=== PATIENT | female | born 1980 | race Caucasian/White ===

== ENCOUNTER 2016-12-29 11:57 | Inpatient (IN) ==
[2016-12-29] MEDS ORDERED: Ringers Solution, Lactated 1,000 ML IVC SCH (12:00)
[2016-12-29] MEDS ORDERED: Ondansetron 4 MG/2 ML VIAL IVP PRN (12:00)
[2016-12-29] MEDS ORDERED: Naloxone 0.4 MG/ML INJ IVP PRN (12:00)
[2016-12-29] MEDS ORDERED: Famotidine 20 MG/2 ML VIAL IVP PRN (12:00)
--- NOTE | 2016-12-29 12:12 | OB/GYN History & Physical ---
Date of Encounter: 12/29/16 Time of Encounter: 12:08 Assessment and Plan (1) 38 weeks gestation of Current visit: Yes Status: Acute admitted for delivery (2) AMA (advanced maternal age) multigravida 35+ Current visit: No Status: Chronic admitted for delivery Qualifiers: Trimester: unspecified trimester Qualified Code(s): O09.529 - Supervision of elderly multigravida, unspecified trimester History of Present Illness Chief complaint: Advanced dilation HPI: Ms. Vera is a 36 year old female @ 38w1d presents to labor and delivery from OB office. Patient was seen by Dr. Ng today and was dilated . Dr. Ng discussed patient with Dr. Argueta and both agreed patient should be sent over for delivery. Patient denies contractions, LOF or VB. Patient reports +FM. Blood type: A+, Rubella: Immune, Hep B: Nonreactive, GBS: Negative. Past Med Surg Social Fam HX - Past Medical History Source: patient Medical history: non-contributory Psychiatric history: no psych history - Past Surgical History Surgical History: no surgical history - Social History Smoking Status: Never smoker Smokeless Tobacco Status: No Alcohol use: none Drug use: none Occupational status: employed Current living situation: Home - Independent Activity Level: Independent ambulation Recent Out of Country Travel Within the Last 8 Weeks: No Exposure or Possible Exposure to Illness During Travel: No - Family History Father Living Status: Hx Family Respiratory Disorders: Yes (LUNG CANCER) Hx Family Cancer: Yes (small cell lung cancer) Obstetrical History - Pregnancies : 2 Para: 1 Term: 0 : 1 Ab's: 0 Livin - History/Complications History/Complications: Vaginal breech delivery Medications and Allergies No Known Home Drugs 12/29/16 [History] Allergies No Known Allergies Allergy (Verified 05/21/15 22:21) Review of System OB - Constitutional Constitutional ROS IM: no fatigue, no fever(s), no headache(s) - Cardiovascular Cardiovascular: no chest pain, no edema, no lightheadedness, no palpitations, no pedal edema, no syncope - Respiratory Respiratory: no cough, no dyspnea - Gastrointestinal Gastrointestinal: no abdominal pain, no cramping, no diarrhea, no heartburn, no nausea, no vomiting - Genitourinary Genitourinary: no abnormal vaginal bleeding, no dysuria, no flank pain, no urinary frequency, no urinary hesitancy, no vaginal discharge, no vaginal odor, no vaginal pruritis Exam - Constitutional Constitutional: well developed, well nourished, no acute distress, average body habitus - HEENT HEENT: Normocephaly, Mucus Membranes Moist - Neck Neck exam: full ROM, supple - Lungs Respiratory exam: CTAB - Cardiovascular Cardiovascular exam: RRR, +S1, +S2 - Abdomen Abdomen: Present: bowel sounds normal, gravid, non tender - Extremities Extremities exam: full ROM, normal capillary refill, normal inspection Deep Tendon Reflex Grade: 2+ Normal - Cervix Dilation: 7 (Per Dr. Ng) Effacement: 90 Station: -1 - Uterus Uterus exam: Present: normal size, normal contour - Comments Comments: FHR 135 bpm moderate variability +15x15 accels no decels noted. CAt. 1 tracing. Contractions irregular. Results All other labs normal. - VTE Reasons for not Prescribing Prophylaxis: Treatment not Indicated - Low risk for VTE
[2016-12-29] MEDS ORDERED: miSOPROStol 100 MCG TABLET PO STA (12:19)
[2016-12-29 12:44] LABS: Basophils % 0.2 %; Eosinophils # 0.1 K/mcL (0.0-0.6); Eosinophils % 1.1 %; Hematocrit 36.5 % (35.3-44.9); Hemoglobin 12.2 g/dL (11.5-15.4); Immature Granulocytes % 0.9 % (0-4); Lymphocytes # 1.4 K/mcL (0.6-4.6); Lymphocytes % 13.8 %; Mean Corpuscular HGB Conc 33.4 g/dL (31.6-35.5); Mean Corpuscular Hemoglobin 30.9 pg (28.0-33.3); Mean Corpuscular Volume 92.4 fL (83.0-100.0); Monocytes # 0.6 K/mcL (0.0-1.3); Monocytes % 5.8 %; Neutrophils # 8.2 K/mcL (1.6-8.9); Platelet Count 129 K/mcL (140-400); Red Blood Count 3.95 M/mcL (3.82-4.97); Segmented Neutrophils % 78.2 %
[2016-12-29] MEDS ORDERED: Bupivacaine-MPF 0.25% 10 ML VIAL EP ONE (14:41)
[2016-12-29] MEDS ORDERED: *HR* FentaNYL (PF) 100 MCG/2 ML VIAL EP ONE (14:41)
--- NOTE | 2016-12-29 14:44 | Anesthesia Evaluation PreOp ---
Date of Encounter: 12/29/16 Time of Encounter: 14:33 - Past History Planned Operation: labor epidural Cardiac History: Denies any Significant Hx Pulmonary History: Denies Any Significant HX [facility] History: Denies Any Significant HX Other Medical History: Denies Any Significant HX Anesthesia History: No Prior Anesthetic Complications (never had general anesthesia. No family history of anesthetic problems. no problems with previous epidural.) : Yes Alcohol Use: none Drug use: none Medications and Allergies No Known Home Drugs 12/29/16 [History] Allergies No Known Allergies Allergy (Verified 05/21/15 22:21) - Meds/Allergy Pre-op Review Medications Reviewed: Yes Allergies Reviewed: Yes Beta Blockers on Current Med List: No Anesthesia Results - Labs 12/29/16 12:33 Anesthesia Exam vss Height: 5'5" Weight: 69 kg NPO (# of Hours): 1.5 Pain Scale: 0 Pain Scale Used: Numeric (1 - 10) - HEENT Pupil (Motor): Pupils equal, EOMI Mallampati: II Teeth: Normal Oral Opening: Greater than 3 - [facility] LOC: Oriented [facility] Motor: Normal RUE, Normal LUE, Normal RLE, Normal LLE, Normal Face [facility] Sensory: Normal: RUE, LUE, RLE, LLE, Face - Cardiac Rhythm: Regular - Pulmonary Breath Sounds: bilateral Clear Respiratory Effort: Symmetrical Anesthesia Assess/Plan ASA Score: 2 Modified Beul[place] Scale for Level of Consciousness: Cooperative, oriented, and tranquil Anesthetic Plan: Regional Monitoring Plan: Standard Monitors
[2016-12-29] MEDS ORDERED: Epidural Premix (fent/bupiv) 110 ML EP SCH (14:45)
[2016-12-29] MEDS ORDERED: Bupivacaine-MPF 0.25% 10 ML VIAL ONE (14:57)
[2016-12-29] MEDS ORDERED: *HR* FentaNYL (PF) 100 MCG/2 ML VIAL ONE (14:57)
[2016-12-29] MEDS ORDERED: Epidural Premix (fent/bupiv) 110 ML EP ONE (14:58)
--- NOTE | 2016-12-29 16:08 | Anesthesia Procedures ---
Date of Encounter: 12/29/16 Time of Encounter: 15:01 Procedures: Anesthesia - Epidural/Spinal Patient ID/Chart reviewed: Yes Patient examined: Yes OB Eval: Gestational age: 38 OB Eval: : 2 OB Eval: Hx Para: 1 OB Eval: Dilated at (cm): 7 OB Eval: Contractions: Non-stressed pattern Consent Obtained: Yes Supplemental Oxygen: None/Room Air Site Prep: Aseptic Technique, Sterile prep and drape, Povidone-Iodine 1% Patient position: upright Local Anesthetic: Lidocaine 1% Amount of Local Anesthetic used: 5 Touhy Needle Gauge: 18 Touhy Needle Depth (cm): 5 Catheter Depth at Skin (cm): 15 Test Dose (1.5% Lido + Epi): Volume given (mls): 6 (2 doses of 3ml each at dufferent interspaces. see note.) Test Dose Result: Positive (once catheter placed at L2-3, blood noted upon aspiration. Appeared to clear with pulling back on catheter and flushing with NS. However, upon admininstration of test dose, heart rate went feom 70s to 90s. catheter d/c'd and epidural placed at L3-4.) Loading Dose: 0.25% Marcaine (mls): 8 Loading Dose: Fentanyl (mcg): 100 Loading Dose Administered: Thru Catheter Infusion Med: 0.125% Bupivacaine w/ 2 mcg/ml Fentanyl Infusion Rate (mls/hr): [address]: Tegaderm, Tape Interspace Used: L3-L4 Loss of Resistance (LUBA): Yes Blood: No CSF: No Paresthesia: No Procedure: L2-3 interspace chosen, catheter easily placed. Blood noted upon aspiration. Pulled back on depth of catheter and flushed with NS with no further blood in catheter. However, upon administration of test dose, Heart rate increased from mid 70s to mid to upper 90s. Catheter d/c'd. Same procedure followed at L3-4, again with easy placement of catheter and no blood present and negative result with test dose. Patient tolerated the procedure well with return of heart rate to mid 70s. Vitals + FHT's: 3 Vital Signs Time 1501 1515 1520 1525 1530 1535 1540 BP 117/64 109/60 109/60 120/65 110/63 109/65 112/61 Pulse 83 77 70 84 72 75 76 FHTs 140 140 150 140 140 140 150
--- NOTE | 2016-12-29 16:51 | OB Labor Progress Note ---
Date of Encounter: 12/29/16 Time of Encounter: 16:49 Labor Progress Note - Subjective Subjective: Patient resting comfortably with epidural in place. Patient denies any pain. Discussed POC with patient. Patient denies any questions or concerns. - Cervix Cervix: 7.5/100/-1 - Heart Tones Heart Tones: 135 bpm moderate variable +15x15 accels no decels noted. Cat. 1 tracing - Lawrence Lawrence: 3-4 min apart - Interventions Interventions: SVE, AROM small amount of clear fluid. - Plan Plan: Continue labor management.
[2016-12-29] MEDS ORDERED: Oxytocin 20 units/ LR 1000 mL 20 UNIT/1,000 ML BAG IVC ONE (17:47)
[2016-12-29] MEDS ORDERED: Measles/Mumps/Rubella Vacc 0.5 ML VIAL SQ PRN ×2 (18:10→19:40)
[2016-12-29] MEDS ORDERED: Ibuprofen 600 MG TABLET PO PRN ×2 (18:10→19:40)
[2016-12-29] MEDS ORDERED: Acetaminophen 325 MG TABLET PO PRN ×2 (18:10→19:40)
[2016-12-29] MEDS ORDERED: Lanolin 7 G OINT...G. TP PRN ×2 (18:12→19:40)
[2016-12-29] MEDS ORDERED: Oxytocin 20 units/ LR 1000 mL 20 UNIT/1,000 ML BAG IVC SCH ×2 (18:15→19:40)
--- NOTE | 2016-12-29 18:20 | OB/GYN Procedure Note ---
Delivery - Delivery Date: 12/29/16 Provider: Gretta Schmitt Intrapartum events: none Delivery induction: none Delivery augmentation: rupture of membranes (50mcg cytotec PO) Delivery monitor: external FHT, external uterine Anesthesia: epidural Estimated Blood Loss: 100 - Infant (s) A Infant Delivery Date: 12/29/16 Delivery Time: 17:51 Presentation: vertex Position: ALBERTA Route of delivery: Gender: Male Viability: Viable Pounds: 6 Ounces: 11 Weight Gram: 3025 kg at 1 minute: 8 at 5 mins: 9 Shoulder Dystocia: not encountered Placenta: spontaneous Cord: nuchal cord (x1 loose), 3 umbilical vessels, nuchal reduced - Repair Episiotomy: none Laceration Description: None - Complications Delivery complications: none - Disposition Mom disposition: stable in LDR disposition: stable in LDR - Comments Comments: Called to LDR. Patient is complete and feeling pressure. Patient placed in stirrups and prepped for vaginal delivery. Under maternal effort patient spontaneously delivered male infant over intact perineum. Nuchal cord x1 and reduced. No shoulder dystocia or meconium was noted. was placed on maternal abdomen. Cord was clamped and cut after pulsations ceased. Placenta was delivered spontaneously and visually intact. Pericare provided. Both mother and are stable in LDR for 2 hour recovery. Patient desires permanent sterilization, tubal ligation consent was signed in office. Bed management notified of add on surgery in morning.
[2016-12-30] MEDS ORDERED: ceFAZolin 2,000 MG in D5% in Water (Mini-Bag+) 100 ML IVPB ONE (07:41)
--- NOTE | 2016-12-30 07:44 | OB/GYN Progress Note ---
Date of Encounter: 12/30/16 Time of Encounter: 07:45 - Assessment and Plan (1) Status post vaginal delivery Current Visit: Yes Status: Acute (2) Family planning Current Visit: No Status: Acute will prepare The patient for a bilateral partial salpingectomy Subjective - Subjective Interval history: Patient without complaints at this time patient still wanted proceed on with tubal ligation. The risks and benefits of the tubal were explained to patient with failure rate of 5-8 per thousand with increased risk of ectopic if was to occur. Patient is having minimal bleeding minimal pain Patient reports: appetite normal, voiding normally, pain well controlled, ambulating normally : doing well Objective - Latest Vital Signs Latest vital signs: Vital Signs Temp Pulse Resp BP Pulse Ox 12/30/16 07:39 98.2 F 89 16 110/68 12/30/16 04:02 98.3 F 75 16 109/72 98 12/29/16 22:15 98.2 F 84 20 115/75 97 12/29/16 21:15 98.2 F 89 16 121/67 97 12/29/16 20:15 98.3 F 79 16 114/59 95 Intake and Output 12/29/16 12/29/16 12/30/16 15:59 23:59 07:59 Intake Total 950 / 950 400 / 400 Output Total 600 / 600 900 / 900 Balance 950 / 950 -200 / -200 -900 / -900 Intake: IV Fluids 950 / 950 Lactated Ringers 1,000 ML 950 / 950 @ 125 mls/hr IVC .Q8H [facility] Rx#:[id number] Other 400 / 400 Output: Urine 600 / 600 900 / 900 Other: Stool Characteristics Normal for Patient Weight 69.3 kg 66.5 kg Patient Weight 12/30/16 23:59 Weight 66.5 kg - Exam Lungs: bilateral: normal Chest: Normal S1, Normal S2 Extremities: Present: normal Abdomen: Present: normal appearance, soft Uterus: Present: firm Uterus Position: At Umbilicus - Labs Labs: Laboratory Results - last 24 hr 12/29/16 12:33 WBC 10.4 RBC 3.95 Hgb 12.2 Hct 36.5 MCV 92.4 MCH 30.9 MCHC 33.4 RDW 13.0 Plt Count 129 L MPV 11.0 Immature Gran % 0.9 Seg Neutrophils % 78.2 Lymphocytes % 13.8 Monocytes % 5.8 Eosinophils % 1.1 Basophils % 0.2 Neutrophils # 8.2 Lymphocytes # 1.4 Monocytes # 0.6 Eosinophils # 0.1 Basophils # 0.0
[2016-12-30] MEDS ORDERED: Lidocaine -MPF 2% 2 ML VIAL ONE (08:12)
[2016-12-30] MEDS ORDERED: *HR* Succinylcholine 200 MG/10 ML VIAL IVP ONE (08:12)
[2016-12-30] MEDS ORDERED: *HR* Propofol 200 MG/20 ML VIAL IVP ONE (08:12)
[2016-12-30] MEDS ORDERED: *HR* Rocuronium Bromide 50 MG/5 ML VIAL ONE (08:12)
[2016-12-30] MEDS ORDERED: *HR* FentaNYL (PF) 100 MCG/2 ML VIAL ONE (08:12)
[2016-12-30] MEDS ORDERED: Bupivacaine/EPI 1:200k 0.25%PF 10 ML VIAL INFILT ONE (08:12)
[2016-12-30] MEDS ORDERED: Ringers Solution, Lactated 1,000 ML IVC SCH (08:15)
[2016-12-30] MEDS ORDERED: Ondansetron 4 MG/2 ML VIAL IVP ONE (08:23)
--- NOTE | 2016-12-30 08:23 | Anesthesia Evaluation PreOp ---
Date of Encounter: 12/30/16 Time of Encounter: 08:21 - Past History Planned Operation: BPS Cardiac History: Denies any Significant Hx Pulmonary History: Denies Any Significant HX Other Medical History: Denies Any Significant HX Anesthesia History: Past Anesthesia (no prior surgery) Alcohol Use: none Drug use: none Medications and Allergies No Known Home Drugs 12/29/16 [History] Allergies No Known Allergies Allergy (Verified 05/21/15 22:21) - Meds/Allergy Pre-op Review Medications Reviewed: Yes Allergies Reviewed: Yes Beta Blockers on Current Med List: No Anesthesia Results - Labs 12/29/16 12:33 Anesthesia Exam Vital Signs/O2 Sat, Most Current Temp Pulse Resp BP Pulse Ox 98.2 F 89 16 110/68 98 12/30/16 07:39 12/30/16 07:39 12/30/16 07:39 12/30/16 07:39 12/30/16 04:02 Height: 5'5''/1.65m Weight: 146 lbs/66.5 kg NPO (# of Hours): 8 Pain Scale: 0 Pain Scale Used: Numeric (1 - 10) - HEENT Pupil (Motor): EOMI Mallampati: II Teeth: Normal Oral Opening: Greater than 3 - [facility] LOC: Oriented [facility] Motor: Normal RUE, Normal LUE, Normal RLE, Normal LLE, Normal Face [facility] Sensory: Normal: RUE, LUE, RLE, LLE, Face - Cardiac Rhythm: Regular Murmur: None - Pulmonary Breath Sounds: bilateral Clear Respiratory Effort: Symmetrical Anesthesia Assess/Plan ASA Score: 2 Modified Beul[place] Scale for Level of Consciousness: Cooperative, oriented, and tranquil Anesthetic Plan: General Monitoring Plan: Standard Monitors Recovery Plan: PACU
[2016-12-30] MEDS ORDERED: *HR* Midazolam HCl 2 MG/2 ML VIAL ONE (08:26)
[2016-12-30] MEDS ORDERED: Dexamethasone 4 MG/ML VIAL ONE (08:54)
[2016-12-30] MEDS ORDERED: Ondansetron 4 MG/2 ML VIAL ONE (08:54)
[2016-12-30] MEDS ORDERED: Prenatal Vit/FA 1 EACH TABLET PO SCH ×2 (09:00)
[2016-12-30] MEDS: *HR* Morphine 2 MG/ML SYRINGE IVP PRN ×4 (09:30→09:49)
[2016-12-30] MEDS ORDERED: Ketorolac 30 MG/ML VIAL IVP ONE (09:37)
--- NOTE | 2016-12-30 09:38 | Operative Note ---
Date of procedure: 12/30/16 Pre-op diagnosis: Status post vaginal delivery, desires sterilization Post-op diagnosis: same Procedure: Bilateral partial salpingectomy Complications: None Anesthesia: GETA Surgeon: Harsh Rodrigez Estimated blood loss (cc): 20 Specimen: Portions of the right and left fallopian tube Condition: stable Disposition: PACU Procedure in Detail: Patient is a 36-year-old female status post vaginal delivery who desired tubal sterilization. Patient states does not want anymore children and wants to proceed with a tubal ligation. The risks and benefits of a tubal ligation were explained to the patient with a failure rate of 5-02/1000 with increased risk of ectopic if was to occur. Procedure: Patient was taken to the operating room where general anesthesia was found be adequate. She was placed in the dorsal supine position prepped and draped in usual fashion. Timeout was then obtained. A small infraumbilical incision was made with a scalpel and carried down to the underlying tissue to fascia was identified. The fascia was grasped tented up and nicked in midline and extended laterally with Novoa scissors. The parietal peritoneum was identified tented up and entered sharply. [address] [employer] retractors were placed to the incision the right fallopian tube was then identified grasped tented up through the incision followed out to the fimbriated end. At the ampullar region a 2 cm portion of the tube was then suture ligated with O plain 2 for the knuckle was excised. Good hemostasis was noted and the tube was returned to the abdomen. In a similar fashion on the left side the tube was identified grasped and brought out through the incision and followed out to the fimbriated end. A 2 cm portion of this tube was then suture ligated with oh plain 2 and a knuckle was excised. Good hemostasis was noted tube was returned to the abdomen. Specimen was sent to pathology. Good hemostasis was noted the fascia was closed using an 0 Vicryl in a running stitch and the skin was closed using a 4-0 Vicryl in subcuticular manner. All needles AND sponge counts were correct 3 and she did receive preoperative antibiotics. She was taken recovery room in stable condition.
--- NOTE | 2016-12-30 10:06 | Anesthesia Evaluation Post Op ---
Date of Encounter: 12/30/16 Time of Encounter: 10:05 - Vital Signs Vital Signs: Vital Signs/O2 Sat, Most Current Temp Pulse Resp BP Pulse Ox 98.0 F 66 16 117/77 97 12/30/16 09:55 12/30/16 09:55 12/30/16 09:55 12/30/16 09:55 12/30/16 09:55 - Lungs Lungs: Clear Ascult./Percussion - Airway Airway: Non-obstructed - Cardiovascular Regular Rate - Mental Status Mental Status: Asleep with brisk response to light stimulation - Pain Pain Scale: 3 Pain Scale used: Numeric (1 - 10) - Nausea Vomiting Nausea Vomiting: Not Present - Hydration Hydration: NPO, Has not voided - Discharge PostOp Status: Transfer Patient to floor
[2016-12-30] MEDS ORDERED: Ibuprofen 600 MG TABLET PO PRN (10:13)
[2016-12-30] MEDS ORDERED: *HR* HYDROcodone/Acet 5/325 mg TABLET PO PRN (10:13)
[2016-12-30] MEDS ORDERED: Acetaminophen 325 MG TABLET PO PRN (10:13)
--- NOTE | 2016-12-30 13:58 | Discharge Summary ---
Date of Encounter: 12/30/16 Time of Encounter: 14:00 - Discharge Diagnosis (1) Status post vaginal delivery Priority: Primary Status: Acute (2) Family planning Priority: Secondary Status: Acute (3) Status post tubal ligation at time of delivery, current hosp Priority: Secondary Status: Acute - Discharge Medications Prescriptions: HYDROcodone/Acet 5/325 mg [[place] 5-325 mg] 1 tab PO Q6HR PRN #30 tablet PRN Reason: Moderate Pain (4-6) Ibuprofen [Motrin] 600 mg PO Q6HR PRN #30 tablet PRN Reason: Cramping Home Medications: HYDROcodone/Acet 5/325 mg [[place] 5-325 mg] 1 tab PO Q6HR PRN #30 tablet [Rx] Ibuprofen [Motrin] 600 mg PO Q6HR PRN #30 tablet 12/30/16 [Rx] Allergies/Adverse Reactions: Allergies No Known Allergies Allergy (Verified 05/21/15 22:21) Data Procedures and tests throughout hospitalization: Laboratory Tests 12/29/16 12:33 WBC 10.4 RBC 3.95 Hgb 12.2 Hct 36.5 MCV 92.4 MCH 30.9 MCHC 33.4 RDW 13.0 Plt Count 129 L MPV 11.0 Immature Gran % 0.9 Seg Neutrophils % 78.2 Lymphocytes % 13.8 Monocytes % 5.8 Eosinophils % 1.1 Basophils % 0.2 Neutrophils # 8.2 Lymphocytes # 1.4 Monocytes # 0.6 Eosinophils # 0.1 Basophils # 0.0 Date of admission: 12/29/16 11:57 Primary care physician: rahul Discharging clinician: Harsh Rodrigez Anticipated date of discharge: 12/30/16 - Patient Status Disposition: Home, Self-Care Condition: Good Functional capacity at discharge: independent ambulation Overall status at discharge: patient is progressing back to baseline - Discharge Instructions Follow Up With: Conor Ng MD [Partnered Physician] - - Diet and Activity Activity: increase activity as tolerated Diet: advance to your usual diet Hospital Course Procedures: Normal spontaneous vaginal delivery, bilateral partial salpingectomy Reason for admission: active labor Delivery: Episiotomy: none Laceration: none Other procedures: tubal ligation complications: none Discharge diagnosis: IUP at term delivered Hospital course: Patient is a 30 sexual female who presented to labor and delivery in active labor. Patient delivered vaginally without any complications. Patient was wanting to get a tubal ligation papers have been signed. The risks and benefits of the tubal had been previously explained to the patient. Patient did undergo a bilateral partial salpingectomy on hospital day #1 without difficulty. Patient was doing well still wanted to go home. She was discharged home with prescription for Motrin 600 mg and Vicodin 5 mg for postoperative pain control. Patient will follow up in the office in 2-4 weeks with her primary care provider. Patient's condition at the time of discharge was stable. Time Attestation: Total time spent providing and/or coordinating discharge services: Exam - Constitutional Vitals: Temp Pulse Resp BP Pulse Ox 97.7 F 63 16 114/62 97 12/30/16 12:15 12/30/16 12:15 12/30/16 12:15 12/30/16 12:15 12/30/16 11:10 General appearance IM: mild distress, A&O X 3 - Respiratory Respiratory exam: Present: CTAB - Cardiovascular Cardiovascular exam IM: Present: RRR - GI/Abdominal GI/Abdominal exam IM: normal bowel sounds Incision: normal, intact, dressed - Uterus Position: 4 Fingers Below Umbilicus
[2016-12-30 15:34] VITALS: BP 121/75
[2016-12-30] MEDS ORDERED: Neostigmine Methylsulfate 3 MG/3 ML SYRINGE ONE (17:02)
[2016-12-31] MEDS ORDERED: Prenatal Vit/FA 1 EACH TABLET PO SCH (09:00)
== END 2016-12-30 19:15 | disposition home or self-care (01) | DRG 767 ==
LOC: 1NENULAB 11:57 → 1NENUOBS 19:34
PROVIDERS: ADMIT Obstetrics & Gynecology; ATTEND Obstetrics & Gynecology